=== PATIENT | male | born 1995 | race Caucasian/White ===

== ENCOUNTER 2017-01-17 15:35 | Emergency (ER) | payer MEDICAID ==
[2017-01-17 15:49] VITALS: BP 140/80
--- NOTE | 2017-01-17 16:28 | EDM.PDOC ---
ED HPI GENERAL MEDICAL PROBLEM - General Chief Complaint: Upper Extremity Injury/Pain Stated Complaint: HURT RIGHT HAND Time Seen by Provider: 01/17/17 15:50 Source of Information: Reports: Patient History Limitations: Reports: No Limitations - History of Present Illness INITIAL COMMENTS - FREE TEXT/NARRATIVE: Pt had an injury several days ago and in the last 24 hours he hit his rt hand against a wall and it is very painful Onset: Today Duration: Hour(s): Location: Reports: Upper Extremity, Right Associated Symptoms: Reports: No Other Symptoms Right Hand Pain Score (Numeric/FACES): 7 - Related Data Allergies Allergy/AdvReac Type Severity Reaction Status Date / Time No Known Allergies Allergy Verified 01/17/17 15:48 Past Medical History - Past Health History Medical/Surgical History: Denies Medical/Surgical History HEENT History: Reports: Impaired Vision Musculoskeletal History: Reports: Fracture Other Musculoskeletal History: fx wrist - Infectious Disease History Infectious Disease History: Reports: Chicken Pox - Past Surgical History GI Surgical History: Reports: Other (See Below) Other GI Surgeries/Procedures: Surgery for swollen lymph nodes Social & Family History - Tobacco Use Smoking Status *Q: Never Smoker Second Hand Smoke Exposure: No - Caffeine Use Caffeine Use: Reports: Coffee, Soda, Tea - Alcohol Use Days Per Week of Alcohol Use: 0 - Recreational Drug Use Recreational Drug Use: No Review of Systems - Review of Systems Review Of Systems: See Below Constitutional: Reports: No Symptoms Eyes: Reports: No Symptoms Ears: Reports: No Symptoms Nose: Reports: No Symptoms Mouth/Throat: Reports: No Symptoms Respiratory: Reports: No Symptoms Cardiovascular: Reports: No Symptoms GI/Abdominal: Reports: No Symptoms Genitourinary: Reports: No Symptoms Musculoskeletal: Reports: Other (pt hit his rt hnd against a wall nd he has pain on the small finger side of the hand. ) ED EXAM, GENERAL - Physical Exam Exam: See Below Exam Limited By: No Limitations General Appearance: Alert Extremities: Other (pt hit a wall and he is complaining of pain in the rt hand along the 5th metacarpal. When he moves his small finger it is painful. ) Course - Vital Signs Last Recorded V/S: Last Vital Signs Temp 36.3 C 01/17/17 15:52 Pulse 84 01/17/17 15:52 Resp 16 01/17/17 15:52 BP 140/80 01/17/17 15:52 Pulse Ox 99 01/17/17 15:52 - Orders/Labs/Meds Orders: Active Orders 24 hr Category Date Time Status Hand Comp Min 3V Rt [CR] Stat Exams 01/17/17 16:10 Ordered - Re-Assessments/Exams Free Text/Narrative Re-Assessment/Exam: 01/17/17 16:29 xray was obtained which did not show a definite fracture. Departure - Departure Time of Disposition: 16:30 Disposition: Home, Self-Care 01 Condition: Fair Clinical Impression: Contusion of right hand - Discharge Information Forms: ED Department Discharge Care Plan Goals: elevate, cool pack, wrap on and off with a mauri wrap. Use ice for 72 hours and then start soaking in warm water, motrin 600mg tidn norco 5/325 1 tab q6h as needed for pain # 4 - My Orders Last 24 Hours: My Active Orders 01/17/17 16:10 Hand Comp Min 3V Rt [CR] Stat - Assessment/Plan Last 24 Hours: My Active Orders 01/17/17 16:10 Hand Comp Min 3V Rt [CR] Stat
--- NOTE | 2017-01-18 09:43 | CR ---
Hand Comp Min 3V Rt FINDINGS: There is normal alignment. There are no fractures or posttraumatic findings. There are no significant degenerative changes. The soft tissues are unremarkable. IMPRESSION: Negative exam.
== END 2017-01-17 17:00 | disposition home or self-care (01) ==
LOC: JP.ED 15:35
DX: S60.221A Contusion of right hand, initial encounter (principal); Z98.890 Other specified postprocedural states; W22.8XXA Striking against or struck by other objects, initial encounter
CPT/HCPCS: 73130-26-RT; 73130-RT; 99284

== ENCOUNTER 2019-02-08 01:08 | Emergency (ER) | payer MEDICAID, OTHER ==
[2019-02-08] MEDS ORDERED: Alum Hydrox/Mag Hydrox/Simeth 30 ML, Lidocaine 2% 15 ML PO ONE ×2 (01:26)
[2019-02-08 01:35] VITALS: BP 138/93; PULSE 68
--- NOTE | 2019-02-08 01:46 | EDM.PDOC ---
ED HPI GENERAL MEDICAL PROBLEM - General Chief Complaint: Chest Pain Stated Complaint: CHEST PAIN Time Seen by Provider: 02/08/19 01:26 Source of Information: Reports: Patient History Limitations: Reports: No Limitations - History of Present Illness INITIAL COMMENTS - FREE TEXT/NARRATIVE: This young man awoke with a intense heavy pressure-like pain in his epigastric area. It was really intense for about 15 minutes and so he decided to come to the hospital for it. It subsided little bit now now it's only about a 7 out of 10. He did not take anything for it. He's never had this problem before. It began while he was sleeping epigastric Pain Score (Numeric/FACES): 10 - Related Data Allergies Allergy/AdvReac Type Severity Reaction Status Date / Time No Known Allergies Allergy Verified 02/08/19 01:14 Home Meds: Home Meds NK [No Known Home Meds] 02/08/19 [History] Past Medical History - Past Health History Medical/Surgical History: Denies Medical/Surgical History HEENT History: Reports: Impaired Vision Musculoskeletal History: Reports: Fracture Other Musculoskeletal History: fx wrist - Infectious Disease History Infectious Disease History: Reports: Chicken Pox - Past Surgical History GI Surgical History: Reports: Other (See Below) Other GI Surgeries/Procedures: Surgery for swollen lymph nodes Social & Family History - Tobacco Use Smoking Status *Q: Former Smoker Used Tobacco, but Quit: Yes Month/Year Tobacco Last Used: 2018 - Caffeine Use Caffeine Use: Reports: Soda, Tea - Recreational Drug Use Recreational Drug Use: No ED ROS GENERAL - Review of Systems Review Of Systems: ROS reveals no pertinent complaints other than HPI. ED EXAM, GENERAL - Physical Exam Exam: See Below Exam Limited By: No Limitations General Appearance: Alert, WD/WN, Mild Distress Eye Exam: Bilateral Eye: Normal Inspection Throat/Mouth: Normal Oropharynx Head: Atraumatic Neck: Normal Inspection Respiratory/Chest: No Respiratory Distress, Lungs Clear Cardiovascular: Regular Rate, Rhythm, No Murmur GI/Abdominal: Soft, Other (Mild epigastric tenderness) Back Exam: Normal Inspection Extremities: Normal Inspection Course - Vital Signs Last Recorded V/S: Last Vital Signs Temp 36.1 C 02/08/19 01:11 Pulse 68 02/08/19 01:11 Resp 18 02/08/19 01:11 BP 138/93 H 02/08/19 01:11 Pulse Ox 98 02/08/19 01:11 - Orders/Labs/Meds Meds: Medications Discontinued Medications Generic Name Dose Route Start Last Admin Trade Name Eliza PRPaxton Reason Stop Dose Admin Al Hydroxide/Mg Hydroxide 30 ml 02/08/19 02:00 02/08/19 02:06 Mag-Al Plus PO 02/08/19 02:01 30 ml ONETIME ONE Administration Al Hydroxide/Mg Hydroxide 30 0 ml 02/08/19 01:26 02/08/19 01:36 ml/ Lidocaine HCl 15 ml PO 02/08/19 01:27 30 ml ONETIME ONE Administration Pantoprazole Sodium 40 mg 02/08/19 02:02 02/08/19 02:06 Protonix PO 02/08/19 02:03 40 mg ONETIME ONE Administration - Re-Assessments/Exams Free Text/Narrative Re-Assessment/Exam: 02/08/19 07:05 He received a GI cocktail he said that completely took care of the burning in his chest but he still has a little bit of pain in the epigastric area. I then gave just a dose of regular Maalox and pantoprazole 40 mg. After a short while he said that felt better and he felt ready to go home. He was counseled on use of antiacids as well as acid blocking medication such as proton pump inhibitors. He was encouraged see his doctor if the problem continues Departure - Departure Time of Disposition: 02:39 Disposition: Home, Self-Care 01 Condition: Fair Clinical Impression: Gastroesophageal reflux disease Instructions: Gastroesophageal Reflux Disease, Adult, [id number] Referrals: PCP,None [Primary Care Provider] - Forms: ED Department Discharge Additional Instructions: You can use an antacid like Tums to block acid in your stomach. [employer] makes a generic Tums and a big bottle of it is $1.98. You can also try the medication omeprazole which is available [id number] at [facility]. This blocks the acid all day long. You may want to use this for a few days but should not have to use it continuously. If this problem continues then see your doctor.
[2019-02-08] MEDS ORDERED: Aluminum Hydroxide/Magnesium Hydroxide/Simethicone Susp 30 ML Cup PO ONE (02:00)
[2019-02-08] MEDS ORDERED: Pantoprazole 40 MG Tab.CR PO ONE (02:02)
== END 2019-02-08 02:46 | disposition home or self-care (01) ==
LOC: JP.ED 01:08
DX: K21.9 Gastro-esophageal reflux disease without esophagitis (principal); Z87.891 Personal history of nicotine dependence
CPT/HCPCS: 99284; A9270; 99283

== ENCOUNTER 2019-02-09 00:32 | Emergency (ER) | payer MEDICAID, OTHER ==
[2019-02-09 00:50] VITALS: BP 123/82; PULSE 60
[2019-02-09] MEDS ORDERED: Sodium Chloride 0.9% 10 ML Syringe FLUSH PRN ×2 (01:01→01:19)
[2019-02-09] MEDS ORDERED: HYDROmorphone 1 MG/ML Syringe IVPUSH ONE (01:01)
[2019-02-09] MEDS ORDERED: Pantoprazole 40 MG Vial IVPUSH ONE (01:02)
[2019-02-09] MEDS ORDERED: Ondansetron 4 MG/2 ML SDV IVPUSH ONE (01:02)
[2019-02-09] MEDS ORDERED: Iopamidol 612 MG/ML 100 ML Bottle IV PRN (01:19)
[2019-02-09] MEDS ORDERED: Alum Hydrox/Mag Hydrox/Simeth 30 ML, Lidocaine 2% 15 ML PO ONE ×2 (01:23)
--- NOTE | 2019-02-09 02:31 | CRLCT ---
INDICATION: Acute epigastric pain TECHNIQUE: CT chest, abdomen and pelvis acquired with 100 cc Isovue-300 IV contrast. COMPARISON: None FINDINGS: Chest: Cardiovascular structures: Heart size is normal. Thoracic aorta and main pulmonary artery are normal in caliber. Mediastinum and cristopher: No mass or adenopathy. Lungs: Clear. Pleura and pericardium: No effusions. Chest wall and axilla: No mass or adenopathy. Bones: Unremarkable for age. Abdomen and Pelvis: Liver: Unremarkable. Spleen: The spleen measures 15.3 cm in length.. Pancreas: Unremarkable. Gallbladder and bile ducts: Unremarkable. Adrenal glands: Unremarkable. Kidneys: Unremarkable. GI tract: Unremarkable. Appendix is not seen but no inflammatory changes identified in the right lower quadrant. Vascular structures: Unremarkable. Lymph nodes: Unremarkable. Miscellaneous: Unremarkable. No free air or significant free fluid. Pelvic Organs: Unremarkable. Bones: Unremarkable for age. IMPRESSION: No acute abnormality within the chest, abdomen, or pelvis. Splenomegaly of unknown etiology. Please note that all CT scans at this facility use dose modulation, iterative reconstruction, and/or weight-based dosing when appropriate to reduce radiation dose to as low as reasonably achievable. Dictated by Daly Correa MD @ Feb 09 2019 2:29AM Signed by Dr. Daly Correa @ Feb 09 2019 2:29AM
--- NOTE | 2019-02-09 03:02 | EDM.PDOC ---
ED HPI GENERAL MEDICAL PROBLEM - General Chief Complaint: Gastrointestinal Problem Stated Complaint: STOMACH PAINS,THROWING UP Time Seen by Provider: 02/09/19 02:14 Source of Information: Reports: Patient History Limitations: Reports: No Limitations - History of Present Illness INITIAL COMMENTS - FREE TEXT/NARRATIVE: This patient was seen last night for chest and abdominal pain. The he had substernal chest pain which was burning and that was relieved by GI cocktail. He also had some vague epigastric abdominal pain which at one time seemed to be relieved by the GI cocktail and antacids but it wasn't really clearly so. He was given some pantoprazole and told to take antiacids and dismissed. He felt better but then today at about 2 PM he began hurting again. He took some Tums seemed to go away and then came back again later on tonight took 6 more times didn't seem to help any. Got really bad when he went to bed. He did not have the burning in the chest however. He vomited 6 or 7 times. Finally he he did take some omeprazole at about 11 PM. Later after he's had a CT he told me that the abdominal pain seems to vary a lot with his posture. If he rolls one way it Relieves it if he rolls the other exit worse. abd pain Pain Score (Numeric/FACES): 5 - Related Data Allergies Allergy/AdvReac Type Severity Reaction Status Date / Time No Known Allergies Allergy Verified 02/09/19 00:47 Home Meds: Home Meds Calcium Carbonate [Tums] 400 mg PO BID 02/09/19 [History] Omeprazole 20 mg PO DAILY 02/09/19 [History] Past Medical History - Past Health History Medical/Surgical History: Denies Medical/Surgical History HEENT History: Reports: Impaired Vision Gastrointestinal History: Reports: GERD Musculoskeletal History: Reports: Fracture Other Musculoskeletal History: fx wrist - Infectious Disease History Infectious Disease History: Reports: Chicken Pox - Past Surgical History GI Surgical History: Reports: Other (See Below) Other GI Surgeries/Procedures: Surgery for swollen lymph nodes Social & Family History - Tobacco Use Smoking Status *Q: Former Smoker Used Tobacco, but Quit: Yes Month/Year Tobacco Last Used: 2018 - Caffeine Use Caffeine Use: Reports: Soda, Tea - Recreational Drug Use Recreational Drug Use: No ED ROS GENERAL - Review of Systems Review Of Systems: See Below Constitutional: Reports: No Symptoms HEENT: Reports: No Symptoms Respiratory: Reports: No Symptoms Cardiovascular: Reports: No Symptoms Endocrine: Reports: No Symptoms GI/Abdominal: Reports: Abdominal Pain, Nausea, Vomiting. Denies: Black Stool, Bloody Stool, Constipation, Diarrhea, Distension, Flatus, Hematemesis, Hematochezia, Melena : Reports: No Symptoms Musculoskeletal: Reports: No Symptoms Skin: Reports: No Symptoms Neurological: Reports: No Symptoms Psychiatric: Reports: No Symptoms ED EXAM, GI/ABD - Physical Exam Exam: See Below Exam Limited By: No Limitations General Appearance: Alert, WD/WN, Mild Distress Eyes: Bilateral: Normal Appearance Throat/Mouth: Normal Oropharynx Head: Atraumatic Neck: Normal Inspection Respiratory/Chest: Lungs Clear Cardiovascular: Regular Rate, Rhythm, No Murmur GI/Abdominal Exam: Normal Bowel Sounds, Soft, Tender (Mild to moderate generalized tenderness. Negative Good's sign. Negative for increased tenderness over McBurney's point) Back Exam: Normal Inspection Extremities: Normal Inspection Neurological: Alert Psychiatric: Normal Affect Skin Exam: Warm, Dry Course - Vital Signs Last Recorded V/S: Last Vital Signs Temp 35.8 C 02/09/19 00:49 Pulse 60 02/09/19 00:49 Resp 18 02/09/19 00:49 BP 123/82 02/09/19 00:49 Pulse Ox 98 02/09/19 00:49 - Orders/Labs/Meds Orders: Active Orders 24 hr Category Date Time Status EKG Documentation Completion [RC] ASDIRECTED Care 02/09/19 01:01 Active UA W/MICROSCOPIC [URIN] Urgent Lab 02/09/19 00:42 Ordered Iopamidol [Isovue-300 (61%)] Med 02/09/19 01:19 Active 100 ml IV . DIRECTED PRN Sodium Chloride 0.9% [Normal Saline] 70 ml Med 02/09/19 01:30 Active IV ASDIRECTED Sodium Chloride 0.9% [Saline Flush] Med 02/09/19 01:01 Active 10 ml FLUSH ASDIRECTED PRN Sodium Chloride 0.9% [Saline Flush] Med 02/09/19 01:19 Active 10 ml FLUSH ONETIME PRN Saline Lock Insert [OM.PC] Urgent Oth 02/09/19 00:42 Ordered EKG 12 Lead [EK] Urgent Ther 02/09/19 00:41 Ordered Medication Orders Sodium Chloride (Normal Saline) 70 mls @ 3 mls/sec IV ASDIRECTED ELMO Last Admin: 02/09/19 01:51 Dose: 3 mls/sec Iopamidol (Isovue-300 (61%)) 100 ml IV . DIRECTED PRN PRN Reason: RADIOLOGY EXAM Stop: 02/10/19 01:20 Last Admin: 02/09/19 01:51 Dose: 100 ml Sodium Chloride (Saline Flush) 10 ml FLUSH ASDIRECTED PRN PRN Reason: Keep Vein Open Last Admin: 02/09/19 01:21 Dose: 10 ml Sodium Chloride (Saline Flush) 10 ml FLUSH ONETIME PRN PRN Reason: per radiology protocol Last Admin: 02/09/19 01:51 Dose: 10 ml Labs: Laboratory Tests 02/09/19 02/09/19 02/09/19 Range/Units 00:41 01:00 01:00 WBC 7.9 (4.5-11.0) K/uL RBC 5.27 (4.30-5.90) M/uL Hgb 15.8 H (12.0-15.0) g/dL Hct 44.1 (40.0-54.0) % MCV 84 (80-98) fL MCH 30 (27-31) pg MCHC 36 (32-36) % Plt Count 194 (150-400) K/uL Neut % (Auto) 73 H (36-66) % Lymph % (Auto) 16 L (24-44) % Shelby % (Auto) 8 H (2-6) % Eos % (Auto) 3 (2-4) % Baso % (Auto) 0 (0-1) % ESR (0-20) mm/hr Sodium 144 (140-148) mmol/L Potassium 4.2 (3.6-5.2) mmol/L Chloride 104 (100-108) mmol/L Carbon Dioxide 31 (21-32) mmol/L Anion Gap 9.3 (5.0-14.0) mmol/L BUN 12 (7-18) mg/dL Creatinine 1.0 (0.8-1.3) mg/dL Est Cr Clr Drug Dosing 114.39 mL/min Estimated GFR (MDRD) > 60 (>60) Glucose 124 H (74-106) mg/dL Calcium 9.4 (8.5-10.1) mg/dL Total Bilirubin 0.8 (0.2-1.0) mg/dL AST 49 H (15-37) U/L ALT 86 H (12-78) U/L Alkaline Phosphatase 76 (46-116) U/L Troponin I (0.000-0.056) ng/mL C-Reactive Protein (0.0-0.3) mg/dL Total Protein 7.3 (6.4-8.2) g/dL Albumin 4.5 (3.4-5.0) g/dL Globulin 2.8 (2.3-3.5) g/dL Albumin/Globulin Ratio 1.6 (1.2-2.2) Amylase 62 (25-115) U/L Lipase 93 (73-393) U/L 02/09/19 02/09/19 02/09/19 Range/Units 01:00 01:00 01:22 WBC (4.5-11.0) K/uL RBC (4.30-5.90) M/uL Hgb (12.0-15.0) g/dL Hct (40.0-54.0) % MCV (80-98) fL MCH (27-31) pg MCHC (32-36) % Plt Count (150-400) K/uL Neut % (Auto) (36-66) % Lymph % (Auto) (24-44) % Shelby % (Auto) (2-6) % Eos % (Auto) (2-4) % Baso % (Auto) (0-1) % ESR 6 (0-20) mm/hr Sodium (140-148) mmol/L Potassium (3.6-5.2) mmol/L Chloride (100-108) mmol/L Carbon Dioxide (21-32) mmol/L Anion Gap (5.0-14.0) mmol/L BUN (7-18) mg/dL Creatinine (0.8-1.3) mg/dL Est Cr Clr Drug Dosing mL/min Estimated GFR (MDRD) (>60) Glucose (74-106) mg/dL Calcium (8.5-10.1) mg/dL Total Bilirubin (0.2-1.0) mg/dL AST (15-37) U/L ALT (12-78) U/L Alkaline Phosphatase (46-116) U/L Troponin I < 0.017 (0.000-0.056) ng/mL C-Reactive Protein 0.04 (0.0-0.3) mg/dL Total Protein (6.4-8.2) g/dL Albumin (3.4-5.0) g/dL Globulin (2.3-3.5) g/dL Albumin/Globulin Ratio (1.2-2.2) Amylase (25-115) U/L Lipase (73-393) U/L Meds: Medications Generic Name Dose Route Start Last Admin Trade Name Freq PRN Reason Stop Dose Admin Sodium Chloride 70 mls @ 3 mls/sec 02/09/19 01:30 02/09/19 01:51 Normal Saline IV 3 mls/sec ASDIRECTED ELMO Administration Iopamidol 100 ml 02/09/19 01:19 02/09/19 01:51 Isovue-300 (61%) IV 02/10/19 01:20 100 ml . DIRECTED PRN Administration RADIOLOGY EXAM Sodium Chloride 10 ml 02/09/19 01:01 02/09/19 01:21 Saline Flush FLUSH 10 ml ASDIRECTED PRN Administration Keep Vein Open Sodium Chloride 10 ml 02/09/19 01:19 02/09/19 01:51 Saline Flush FLUSH 10 ml ONETIME PRN Administration per radiology protocol Discontinued Medications Generic Name Dose Route Start Last Admin Trade Name Freq PRN Reason Stop Dose Admin Al Hydroxide/Mg Hydroxide 30 0 ml 02/09/19 01:23 02/09/19 01:26 ml/ Lidocaine HCl 15 ml PO 02/09/19 01:24 45 ml ONETIME ONE Administration Hydromorphone HCl 1 mg 02/09/19 01:01 02/09/19 01:21 Dilaudid IVPUSH 02/09/19 01:02 1 mg ONETIME ONE Administration Ondansetron HCl 4 mg 02/09/19 01:02 02/09/19 01:19 Zofran IVPUSH 02/09/19 01:03 4 mg ONETIME ONE Administration Pantoprazole Sodium 40 mg 02/09/19 01:02 02/09/19 01:15 Protonix Iv IVPUSH 02/09/19 01:03 40 mg ONETIME ONE Administration - Radiology Interpretation Free Text/Narrative:: An EKG had showed some possibility of pericarditis. Because of the peculiar nature of this patient's pain and went ahead and did a CT of abdomen are chest abdomen and pelvis. These were negative for any pathology. I reviewed the films however and there is a large amount of stool in the ascending colon less so in the transverse and descending colon this looks to be enough to cause pain - Re-Assessments/Exams Free Text/Narrative Re-Assessment/Exam: 02/09/19 03:02 Patient was given Dilaudid 1 mg and Zofran 4 mg IV. He also received a GI cocktail. After his CT he feels a little bit nauseated but the pain is better. He doesn't think constipation is causing his problem because he said he has bowel movements regularly Departure - Departure Time of Disposition: 03:04 Disposition: Home, Self-Care 01 Condition: Fair Clinical Impression: Abdominal pain, Constipation by delayed colonic transit - Discharge Information Referrals: PCP,None [Primary Care Provider] - Additional Instructions: Take the omeprazole 20 mg twice daily. Continue to use Tums as needed. Try using a laxative like magnesium citrate or any other laxative such as milk of magnesia or even Eleanor lax. If this does not help your symptoms then you may wind up needing to have your stomach scoped. Follow-up with your Dr. if you're not better within the next couple of days. - My Orders Last 24 Hours: My Active Orders 02/09/19 00:41 EKG 12 Lead [EK] Urgent 02/09/19 00:42 UA W/MICROSCOPIC [URIN] Urgent Saline Lock Insert [OM.PC] Urgent 02/09/19 01:01 EKG Documentation Completion [RC] ASDIRECTED Sodium Chloride 0.9% [Saline Flush] 10 ml FLUSH ASDIRECTED PRN 02/09/19 01:19 Iopamidol [Isovue-300 (61%)] 100 ml IV . DIRECTED PRN Sodium Chloride 0.9% [Saline Flush] 10 ml FLUSH ONETIME PRN 02/09/19 01:30 Sodium Chloride 0.9% [Normal Saline] 70 ml IV ASDIRECTED - Assessment/Plan Last 24 Hours: My Active Orders 02/09/19 00:41 EKG 12 Lead [EK] Urgent 02/09/19 00:42 UA W/MICROSCOPIC [URIN] Urgent Saline Lock Insert [OM.PC] Urgent 02/09/19 01:01 EKG Documentation Completion [RC] ASDIRECTED Sodium Chloride 0.9% [Saline Flush] 10 ml FLUSH ASDIRECTED PRN 02/09/19 01:19 Iopamidol [Isovue-300 (61%)] 100 ml IV . DIRECTED PRN Sodium Chloride 0.9% [Saline Flush] 10 ml FLUSH ONETIME PRN 02/09/19 01:30 Sodium Chloride 0.9% [Normal Saline] 70 ml IV ASDIRECTED
== END 2019-02-09 03:26 | disposition home or self-care (01) ==
LOC: JP.ED 00:32
DX: K59.01 Slow transit constipation (principal); K21.9 Gastro-esophageal reflux disease without esophagitis; Z79.899 Other long term (current) drug therapy; Z87.891 Personal history of nicotine dependence
CPT/HCPCS: 36415; 71260; 74177; 80053; 82150; 83690; 84484; 85025; 85651; 86140; 93005; 96374; 96375; 99284; A9270; C9113; J1170; J2405; J7030; Q9967; 93010; 99283

== ENCOUNTER 2019-04-21 00:23 | Emergency (ER) | payer SELFPAY ==
[2019-04-21 00:38] VITALS: BP 139/92; PULSE 75
--- NOTE | 2019-04-21 01:22 | EDM.PDOC ---
ED HPI GENERAL MEDICAL PROBLEM - General Chief Complaint: ENT Problem Stated Complaint: SORE THROAT Time Seen by Provider: 04/21/19 01:05 Source of Information: Reports: Patient, Old Records, RN History Limitations: Reports: No Limitations - History of Present Illness INITIAL COMMENTS - FREE TEXT/NARRATIVE: 23 yo male here with a sore throat since . No fever. Today also developed some cough and a runny nose. Taking OTC agents for his sx's without relief. Onset: Gradual Onset Date: 04/18/19 Duration: Day(s):, Getting Worse Location: Reports: Neck (throat) Quality: Reports: Sharp Severity: Moderate Improves with: Reports: None Worsens with: Reports: Other (swallowing) Context: Reports: Other (see HPI) Associated Symptoms: Reports: Cough. 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: Reports: Acetaminophen, NSAIDS, Other (see below) Other Treatments MANUFACTURING SOFTWARE ENGINEER: chloraseptic spray, throat drops throat Pain Score (Numeric/FACES): 5 - Related Data Allergies Allergy/AdvReac Type Severity Reaction Status Date / Time No Known Allergies Allergy Verified 02/09/19 00:47 Past Medical History - Past Health History Medical/Surgical History: Denies Medical/Surgical History HEENT History: Reports: Impaired Vision Gastrointestinal History: Reports: GERD Musculoskeletal History: Reports: Fracture Other Musculoskeletal History: fx wrist - Infectious Disease History Infectious Disease History: Reports: Chicken Pox - Past Surgical History GI Surgical History: Reports: Other (See Below) Other GI Surgeries/Procedures: Surgery for swollen lymph nodes Social & Family History - Family History Family Medical History: Noncontributory - Tobacco Use Smoking Status *Q: Never Smoker - Caffeine Use Caffeine Use: Reports: Soda - Recreational Drug Use Recreational Drug Use: No ED ROS ENT - Review of Systems Review Of Systems: See Below Constitutional: Reports: No Symptoms HEENT: Reports: Rhinitis, Throat Pain. Denies: Throat Swelling Respiratory: Reports: Cough. Denies: Shortness of Breath, Wheezing, Pleuritic Chest Pain, Sputum, Hemoptysis Cardiovascular: Reports: No Symptoms Skin: Reports: No Symptoms ED EXAM, ENT - Physical Exam Exam: See Below Exam Limited By: No Limitations General Appearance: Alert, WD/WN, No Apparent Distress Eye Exam: Bilateral Eye: Normal Inspection Ears: Normal External Exam, Normal Canal, Hearing Grossly Normal, Normal TMs Nose: Normal Inspection, No Blood, Clear Rhinorrhea Mouth/Throat: Normal Inspection, Normal Lips, Normal Oropharynx. No: Muffled Voice, Pharyngeal Erythema, Throat Swelling, Tonsillar Erythema, Tonsillar Exudates, Tonsillar Swelling, Uvular Deviation, Uvular Edema Head: Atraumatic, Normocephalic Neck: Normal Inspection Respiratory/Chest: No Respiratory Distress, Lungs Clear, Normal Breath Sounds, No Accessory Muscle Use Cardiovascular: Regular Rate, Rhythm Neurological: Alert, Oriented, CN II-XII Intact, Normal Cognition, No Motor/ Sensory Deficits Psychiatric: Normal Affect, Normal Mood Skin: Warm, Dry, Intact, Normal Color, No Rash Course - Vital Signs Last Recorded V/S: Last Vital Signs Temp 36.1 C 04/21/19 00:37 Pulse 75 04/21/19 00:36 Resp 14 04/21/19 00:36 BP 139/92 H 04/21/19 00:36 Pulse Ox 97 04/21/19 00:36 - Orders/Labs/Meds Orders: Active Orders 24 hr Category Date Time Status CULTURE STREP A CONFIRMATION [RM] Stat Lab 04/21/19 00:37 Results STREP SCRN A RAPID W CULT CONF [RM] Stat Lab 04/21/19 00:37 Results Departure - Departure Time of Disposition: 01:20 Disposition: Home, Self-Care 01 Condition: Good Clinical Impression: Acute viral pharyngitis - Discharge Information *PRESCRIPTION DRUG MONITORING PROGRAM REVIEWED*: No *COPY OF PRESCRIPTION DRUG MONITORING REPORT IN PATIENT ALBERTO: No Instructions: Pharyngitis, [id number] Referrals: PCP,None [Primary Care Provider] - Additional Instructions: Take ibuprofen 600 mg every 6 hrs with food. Add salt water gargles and [place] for added relief as directed. Recheck in the clinic next week if not improving. A culture will be available of your throat in 2-3 days. - My Orders Last 24 Hours: My Active Orders 04/21/19 00:37 CULTURE STREP A CONFIRMATION [RM] Stat STREP SCRN A RAPID W CULT CONF [RM] Stat - Assessment/Plan Last 24 Hours: My Active Orders 04/21/19 00:37 CULTURE STREP A CONFIRMATION [RM] Stat STREP SCRN A RAPID W CULT CONF [RM] Stat
== END 2019-04-21 01:29 | disposition home or self-care (01) ==
LOC: JP.ED 00:23
DX: J02.8 Acute pharyngitis due to other specified organisms (principal); B97.89 Other viral agents as the cause of diseases classified elsewhere
CPT/HCPCS: 87081; 87880-QW; 99283

== ENCOUNTER 2020-02-21 22:09 | Emergency (ER) | payer MEDICAID ==
[2020-02-21 22:23] VITALS: BP 142/71; PULSE 73
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
[2020-02-21] MEDS ORDERED: Bacitracin Oint 1 GM U/D Packet TOP ONE (22:29)
[2020-02-21] MEDS ORDERED: Diphtheria,Pertussis(Acell),Tetanus Vaccine 0.5 ML SDV IM ONE (22:29)
== END 2020-02-21 22:47 | disposition home or self-care (01) ==
LOC: JP.ED 22:09
DX: T22.112A Burn of first degree of left forearm, initial encounter (principal); Z23 Encounter for immunization; X19.XXXA Contact with other heat and hot substances, initial encounter
CPT/HCPCS: 16000; 90471; 90715; 99282; 99283